=== PATIENT | male | born 1960 | race Caucasian/White ===

== ENCOUNTER → 2021-07-14 | Outpatient (CLI) | payer BC ==
[2021-07-14 11:03] VITALS: BP 163/72; PULSE 85; RESP 18; TEMP 97.6
--- NOTE | 2021-07-14 11:13 | P.CON ---
Consult Note - . Consult date: 07/14/21 Assessment/Plan:: HISTORY OF PRESENT ILLNESS: 60 yr old male as a referral from Dr Estrada presents today with cervical pain secondary to small C4-C7 posterior disc herniations or evaluation. Patient states his neck pain is 8 out of 10 in intensity, constant, achy in the mid to lower aspects of the cervical spine with shooting pain, numbness and tingling to the left shoulder. Pain is provoked with rotation, lateral flexion and extension. Pain is relieved with medications ([place] from Dr. Brantley), icy hot, alternating ice and heat, physical therapy in the past, chiropractic treatment in the past, morning home stretching regimen, use of a hot shower, manual massage and rest. PMH: HTN, Hyperlipidemia, DM II PSH: R ankle Fx x 7 screws SH: Hx tobacco use. Occasional ETOH use. No illicit drug use FH: HTN, DM II All: Sulfa, PCN, Paroxetine, Citalopram Meds: See list REVIEW OF ORGAN SYSTEMS: CONSTITUTIONAL: No fevers or chills. No recent weight loss. HEENT: No visual acuity loss, eye pain, difficulties with hearing. No nosebleeds. No difficulty swallowing. RESPIRATORY: Denies any troubles with breathing or dyspnea on exertion. CARDIOVASCULAR: Denies any chest pain, palpitations, or recent heart attacks. GASTROINTESTINAL: Denies fatty food intolerance. Has change in bowel habits and gas bloat. GENITOURINARY: Denies any blood in urine. Has increased urinary frequency. NEUROLOGICAL: + numbness and tingling along the distal extremities. No seizure disorders or headaches. MUSCULOSKELETAL: + back pain SKIN: No skin cancer. No rash. PSYCHIATRIC: Denies current depression or suicidal thoughts. ENDOCRINE: Denies current thyroid disorders. Denies any blood sugar glucose intolerance. HEME/LYMPHATIC: Denies any lumps and bumps around the neck. History of deep venous thrombosis. ALLERGY/IMMUNOLOGY: No immunoglobulin therapy. No immune deficiencies. BREAST: Denies current breast lumps, pain or nipple discharge. Physical Examinations : Constitutional : Cooperative , not in acute distress . HEENT: Neck supple. No Lymphadenopathy. Normal thyroid size . Eyes no ptosis , no icterus, no photophobia . Hearing intact. Normal oropharynx. No Thrush. Respiratory : Chest clear to auscultations bilaterally. No wheezing. No rhonchi. Cardiovascular : Regular rate and rhythm , S1 / S2. No S3 . No S4. Gastrointestinal : Abdomen soft. No tenderness. Bowel sounds x 4. No organomegaly . Genitourinary : Deferred. Neurologic : Cranial nerve II to XII intact. No focal neurological deficits. Psychiatric : alert & oriented x 3. Matching mood & appropriate affect. Judgment & insight intact. Lymphatic No Lymphadenopathy. Musculoskeletal : Cervical Spine Motor strength in the deltoid and biceps: Normal right side. Normal Left side Motor strength biceps and the wrist extensors: Normal right side . Normal left side Motor strength in the triceps muscle: Normal right side. Normal left side Deep tendon reflexes: Normal at the biceps. Normal at Brachioradialis. Normal at triceps Cervical facet loading test: positive bilaterally Vertebral body tenderness to palpation over C4, C5, C6 Spurling test: positive on left Neck distraction test: positive on left Ana Laura sign: positive bilaterally Lumbar spine Motor strength lower extremities ,thigh and legs 5/5 Right side , 5/5 Left side Deep tendon reflexes : Normal Knee Jerk. Normal Ankle Jerk Vertebral body tenderness over Lumbar facet Loading Test: positive Right / positive Left Range of motion of the lumbar spine Flexion 30 degrees, extension 10 degrees Straight Leg Raise test: Left/ Right positive at degree Mick test: positive right / positive left. Severe tenderness over the Sacroiliac joint on the Right / Left sides Gaenslen test: positive bilaterally Seated flexion test: positive bilaterally. Imaging: MRI of C spine without contrast from 10/02/20 reviewed Assessment/ Plan : Recommendation of left TF BLAS C5 to C6. Pain due to series of injections, up to 30 with a six-month period, to obtain optimal pain relief. Risks, benefits of procedure discussed and patient verbalized understanding. Denies aspirin or anti- coagulant use. Admits to medical history of diabetes. Protocol for discontinuation/continuation of medications maite procedure discussed. Filled Diclofenac gel, apply to AA BID Disp 1 tube w 1 refill. All questions answered. I have spent greater than 50 minutes on patient care today. Dr Zabala was available by phone for the evaluation of this patient. The time was used to review the medical records including relevant urine studies and Prescription history (MAPs), review of the available imaging, evaluation and examination of the patient, coordination of care with the medical staff and if applicable referring physicians, as well as creation of the medical record PQRS Measure Charge Sheet Mode of Arrival: Ambulatory - Pain Location Neck Non-Pharmacological Interventions: Chiropractic Treatment, Heat, Home Exercise, Ice, Massage, Physical Therapy, Position/Reposition, Stretching Pharmacological Interventions: PRN Medication, Topical Medication PQRS Narrative: Blood Pressure 163/72 Pain Intensity [Neck] 8 Scale Used Numeric (1 - 10) Hx Alcohol Use (MH) No Home Medications: Ambulatory Orders Diclofenac Sodium Gel [Voltaren Gel] 100 gm TOPICAL BID 30 Days #100 gm 07/14/21
== END ==
LOC: PNWHC3 09:45
PROVIDERS: ATTEND Specialist
DX: M50.220 Other cervical disc displacement, mid-cervical region, unspecified level (principal); I10 Essential (primary) hypertension; E78.5 Hyperlipidemia, unspecified; E11.9 Type 2 diabetes mellitus without complications; Z88.0 Allergy status to penicillin
CPT/HCPCS: 99211

== ENCOUNTER 2021-08-23 06:46 | Day surgery (SDC) | payer BC ==
[2021-08-22 10:16] VITALS: BMI 35.9
[~2021-08-23 06:46] MED LIST: LACTATED RINGERS 1,000 ML IV SCH
[2021-08-23 07:07] VITALS: RESP 16; TEMP 98
[2021-08-23 07:16] LABS: Glucose,Whole Blood 154 mg/dL (75-99)
[2021-08-23] MEDS ORDERED: LACTATED RINGERS 1,000 ML IV ONE (07:35)
[2021-08-23] MEDS ORDERED: MIDAZOLAM 2 MG/2 ML VIAL ONE (07:36)
[2021-08-23] MEDS ORDERED: IOPAMIDOL M200 10 ML VIAL ONE (07:36)
[2021-08-23] MEDS ORDERED: DEXAMETHASONE SOD PHOSPHATE 10 MG/ML 1 ML VIAL ONE (07:36)
[2021-08-23] MEDS ORDERED: fentaNYL (PF) 50 MCG/ML 2 ML AMP ONE (07:36)
--- NOTE | 2021-08-23 07:50 | P.PCN ---
Date of Procedure: 08/23/21 Description of Procedure: PROCEDURE 1. Cervical epidural steroid injection under fluoroscopic guidance, c5/6 2. Cervical epidurogram. PREOPERATIVE DIAGNOSIS: Cervical radiculopathy POSTOPERATIVE DIAGNOSIS: Cervical radiculopathy Imaging: Fluoroscopy was used, images where saved to the medical record ANESTHESIA: Local anesthesia with 1% lidocaine and (IV conscious sedation ) PROCEDURE DESCRIPTION / TECHNIQUE: The patient was seen and identified in the preoperative area. Risks, benefits, and alternatives were discused with the patient and the patient has consented to the procedure. Risks of the procedure include potential for bleeding, infection, nerve damage, and incomplete pain relief were discussed with the patient. All questions were answered for the patient Patient was taken to the OR and time out was completed. The patient was placed in the prone position on the procedure table. A pillow was placed under the patients chest to increase the cervical interlaminar space. The cervical area was prepped and draped in the usual sterile fashion. Vital signs were closely monitored during the procedure. Using anterior-posterior fluoroscopy, the C5/6 interlaminar space was identified and the skin over this site was marked and then infiltrated with 1% lidocaine subcutaneously. Subsequently, a 18-gauge 3-1/2-inch Tuohy epidural needle was inserted and advanced toward the epidural space by means of the [id number] technique and guided by AP and lateral fluoroscopy. The correct needle position in the epidural space was verified with the injection of 1 mL of the water soluble contrast dye [id number] and observing an excellent epidurogram with the epidural spread of the dye, after negative aspiration for blood and CSF and in the absence of paresthesias. Again after negative aspiration, a mixture containing 10 mg Dexamethasone and 2 ml of preservative- free normal saline injected and a washout of epidurogram was seen. Needle was withdrawn intact, skin was cleansed, and bandages were applied. Complications: none. Disposition: patient was placed in supine position and transferred to the recovery room area in stable condition and there was no evidence of upper or lower extremity motor or sensory deficit after the procedure patient was discharged from recovery room after discharge criteria met and home discharge instructions was given by the staff and patient will follow with the pain as directed.
[2021-08-23] MEDS ORDERED: IV FLUID CONTINUATION 1,000 ML IV ONE (07:54)
[2021-08-23 08:16] VITALS: BP 141/72; PULSE 78
--- NOTE | 2021-08-23 08:23 | FL ---
Fluoroscopy HISTORY: Pain 16 seconds fluoroscopy time supplied to the referring clinician. 1 intraoperative C-arm images docum ent the procedure. See dictated report from anesthesia.
== END 2021-08-23 08:28 | disposition home or self-care (01) ==
LOC: ORPAIN 06:46
PROVIDERS: ATTEND Hospitalist
DX: M54.12 Radiculopathy, cervical region (principal)
CPT/HCPCS: 64483; J2250; J1100; J3010; Q9966; 99152